=== PATIENT | male | born 1930 ===

== ENCOUNTER 2019-05-22 08:33 | Outpatient (CLI) | payer MEDICARE, BC ==
--- NOTE | 2019-05-22 08:49 | RAD ---
XR Chest Pa Lat STANDARD HISTORY: Elevated white count COMPARISON: 10/10/2012 FINDINGS: The heart size is at upper limits of normal. The lungs are well expanded without focal area s of consolidation, pneumothorax or pleural effusions. IMPRESSION: No radiographic evidence of acute cardiopulmonary process.
== END 2019-05-22 08:34 | disposition home or self-care (01) ==
LOC: RAD-FRANK 08:33
PROVIDERS: ATTEND Nurse Practitioner Family
DX: D72.828 Other elevated white blood cell count (principal)
CPT/HCPCS: 71046; 81001

== ENCOUNTER 2020-02-24 09:58 | Outpatient (CLI) | payer MEDICARE, BC ==
--- NOTE | 2020-02-24 10:08 | RAD ---
XR Chest Pa Lat STANDARD HISTORY: Elevated WBC count COMPARISON: 05/22/2019 FINDINGS: The heart size is normal. Chronic changes are again seen. No focal areas of consolidation, pneumothoraces, adolfo pulmonary edema or pleural effusions are identified. IMPRESSION: No radiographic evidence of acute cardiopulmonary process.
== END 2020-02-24 09:59 | disposition home or self-care (01) ==
LOC: RAD-FRANK 09:58
PROVIDERS: ATTEND Nurse Practitioner Family
DX: D72.829 Elevated white blood cell count, unspecified (principal)
CPT/HCPCS: 71046; 81001; 87086